=== PATIENT | female | born 1960 | race Caucasian/White ===

== ENCOUNTER → 2021-06-01 12:11 | Outpatient (CLI) | payer BC, SELFPAY ==
--- NOTE | ~2021-06-01 | DEXA_ITS ---
Bone Density Report Name: CELY JOHNSON Age: 61 Sex: Female Ethnicity: White Date of : 1960 Indication: postmenopausal; screening for osteoporosis; height loss; hysterectomy; Referring Provider: NACHO, WILMA Study: Bone densitometry was performed. Exam Date: June 01, 2021 Accession number: [id number] Bone Density: Region BMD T-score Z-score Classification AP Spine (L1-L4) 1.184 1.2 2.8 Normal Femoral Neck (Left) 0.761 -0.8 0.6 Normal Total Hip (Left) 0.992 0.4 1.5 Normal Femoral Neck (Right) 0.738 -1.0 0.4 Normal Total Hip (Right) 0.962 0.2 1.2 Normal Total Hip Mean 0.977 0.3 1.4 Normal World Health Organization criteria for BMD impression classify patients as: Normal (T-score at or above -1.0), Osteopenia (T-score between -1.0 and -2.5), or Osteoporosis (T-score at or below -2.5). 10-year Fracture Risk: FRAX not reported because: All T-scores for Spine Total, Hip Total, Femoral Neck at or above -1.0 Previous Exams: Region Exam Age BMD T-score BMD Change BMD Change Date g/cm2 vs Baseline vs Previous AP Spine(L1-L4) 06/01/2021 61 1.184 1.2 -0.010 -0.040* 04/03/2014 54 1.224 1.6 0.031* 0.031* 03/09/2011 51 1.194 1.3 Total Hip(Left) 06/01/2021 61 0.992 0.4 -0.044* -0.076* 04/03/2014 54 1.068 1.0 0.033* 0.033* 03/09/2011 51 1.036 0.8 Total Hip(Right) 06/01/2021 61 0.962 0.2 -0.037* -0.060* 04/03/2014 54 1.022 0.7 0.023 0.023 03/09/2011 51 1.000 0.5 *Denotes significance at 95% confidence level, LSC for AP Spine = 0.022 g/cm2, LSC for Total Hip = 0.027 g/cm2 Clinical Information Provided by Patient: Has used the following medications: Vitamin D, MTV Has the following medical conditions: Hysterectomy Patient maximum height was 69.0 Menopause Age: 42 No regular weight bearing exercise Drinks caffeinated beverages Onset of menses at age 11 Number of children 1 Impression: The patient has normal bone mass. The BMD for the AP Spine(L1-L4) decreased, changing by -0.040 since the last DXA exam. The BMD for the Total Hip(Left) decreased, changing by -0.076 since the last DXA exam. The BMD for the Total Hip(Right) decreased, changing by -0.060 since the last DXA exam. Discussion: BONE DENSITY IS ABOVE THE MINIMUM DESIRABLE LEVEL AT ALL SKELETAL SITES TESTED. This patient?s bon
--- NOTE | ~2021-06-01 | MM_ITS ---
EXAMINATION: MM screening lindsay BI w mounika HISTORY: Screening mammogram TECHNIQUE: Craniocaudal and mediolateral oblique 3-D tomosynthesis images were obtained and synthetic 2-D images were generated. CAD analysis was submitted and interpreted. COMPARISON: No prior mammogram is available for comparison at this institution. BREAST PARENCHYMAL COMPOSITION: There are scattered areas of fibroglandular density. FINDINGS: There are bilateral breast masses. Bilateral diagnostic mammogram and ultrasound examinati on are recommended. IMPRESSION: 1. Bilateral breast masses 2. Bilateral diagnostic mammography and bilateral breast ultrasound are recommended. BI-RADS Category 0: Incomplete: Needs additional imaging evaluation. Reviewed, dictated and finalized at location A. IMPRESSION: 1. Bilateral breast masses 2. Bilateral diagnostic mammography and bilateral breast ultrasound are recomme nded. BI-RADS Category 0: Incomplete: Needs additional imaging evaluation.
== END ==
PROVIDERS: Visit Provider Nurse Practitioner
DX: Z12.31 Encounter for screening mammogram for malignant neoplasm of breast (principal); Z78.0 Asymptomatic menopausal state; R92.8 Other abnormal and inconclusive findings on diagnostic imaging of breast
CPT/HCPCS: 77063; 77067; 77080

== ENCOUNTER → 2021-06-13 09:00 | Outpatient (CLI) | payer BC, SELFPAY ==
--- NOTE | ~2021-06-13 | MMUS_ITS ---
EXAMINATION: MM diagnostic lindsay BI w mounika, US breast BI limited HISTORY: Bilateral breast masses reported on 06/01/2021 bilateral screening mammogram TECHNIQUE: Additional 3-D tomosynthesis images of both breasts were performed and synthetic 2-D image s were generated. CAD analysis was submitted and interpreted. High resolution bilateral upper and low er outer quadrant breast ultrasound and left breast 11-12 o'clock ultrasound was performed. COMPARISON: 06/01/2021 bilateral screening mammogram FINDINGS: MAMMOGRAPHIC FINDINGS: Right breast: Approximately 3.2 x 5 mm circumscribed mass is suggested at the posterior aspect of the lower outer r ight breast (MLO Tomosynthesis image ).. Left breast: Posterior upper outer approximately 4.8 x 8 mm circumscribed opacity in the mid to upper outer left b reast 4 x 7.8 mm circumscribed opacity in the posteriorly outer mid left breast. ULTRASOUND: Right breast: 8:00 7 cm from nipple: Irregular hypoechoic 4 x 4.8 mm mass. The irregular margins are suspicious. Ul trasound-guided biopsy is recommended. Left breast: 2:00 6 cm from nipple: Circumscribed 3.5 x 4.8 x 4.3 mm hypoechoic lesion without editorial intern al vascularity or posterior shadowing 2:00 6 cm from nipple: 2.4 mm hypoechoic lesion without suspicious shadowing 3:00 6 cm from nipple: 2.8 mm hypoechoic lesion without internal vascularity or suspicious shadowing IMPRESSION: 1. Right breast: Suspicious irregular up to 4.8 mm mass at 8:00 7 cm from nipple; ultrasound-guided b iopsy is recommended 2. Left breast: Probable benign findings; 6 month diagnostic left mammogram and left breast ultrasoun d follow-up are recommended Right breast: BI-RADS Category 4: Suspicious abnormality; biopsy should be considered Left breast: BI-RADS Category 3: Probably benign; six-month diagnostic left mammogram and left breast ultrasound follow-up are recommended Reviewed, dictated and finalized at location A. IMPRESSION: 1. Right breast: Suspicious irregular up to 4.8 mm mass at 8:00 7 cm from nippl e; ultrasound-guided biopsy is recommended 2. Left breast: Probable benign findings; 6 month diagnostic left mammogram and left breast ultrasound follow-up are recommended Right breast: BI-RADS Category 4: Suspicious abnormality; biopsy should be cons idered Left breast: BI-RADS Category 3: Probably benign; six-month diagnostic left lindsay mogram and left breast ultrasound follow-up are recommended
== END ==
PROVIDERS: Visit Provider Obstetrics & Gynecology Gynecology
DX: R92.8 Other abnormal and inconclusive findings on diagnostic imaging of breast (principal)
CPT/HCPCS: 76642; 77062; 77066; G0279